=== PATIENT | male | born 1985 ===

== ENCOUNTER 2021-08-22 16:37 | Inpatient (IN) | payer OTHER ==
[~2021-08-22] VITALS: Ht 167.6 cm; Wt 143.0 kg
[2021-08-22] MEDS ORDERED: TIVICAY50 MG PO (16:58)
[2021-08-22] MEDS ORDERED: DESCOVY 200-251 EAC1 PO (16:59)
[2021-08-22] MEDS ORDERED: HYDR1TAB94 PO (17:00)
[2021-08-22] MEDS ORDERED: CARV6.25 PO (17:02)
[2021-08-22] MEDS ORDERED: VELPHORO PO (17:06)
[2021-08-22] MEDS ORDERED: AMLO5 PO (17:06)
--- NOTE | 2021-08-22 18:00 | NUR ---
pt trnsferred from [facility] this selam. did basic admit. reconcilled meds. vss. denies skin issues. permacath rucw. lightly inflamed. denies pain at this time. denies fistula. h/r reg, no murmer noted. no tele. no orders from dr at this time. lungs clear, resp easy, unlabored on r/a. bt x4 last bm yest per pt. states voids approx 2liters per day. admits to being some weak today. will be one asst to bathroom. bed in low position, all lite in reach, calls approp
[2021-08-22 18:56] LABS: BASOPHILS ABSOLUTE AUTO 0.04 K/mm3 (0.00-0.23); BASOPHILS PERCENT AUTO 0 % (0-2); EOSINOPHILS ABSOLUTE AUTO 0.02 K/mm3 (0.00-0.68); EOSINOPHILS PERCENT AUTO 0 % (0-6); Hematocrit 40.7 % (37.0-53.0); Hemoglobin 13.1 g/dL (13.5-17.5); IMMATURE GRAN ABSOLUTE AUTO 0.05 K/mm3 (0.00-0.10); IMMATURE GRAN PERCENT AUTO 0 % (0-1); LYMPHOCYTES ABSOLUTE AUTO 0.39 K/mm3 (0.84-5.20); LYMPHOCYTES PERCENT AUTO 2 % (21-46); MONOCYTES ABSOLUTE AUTO 0.75 K/mm3 (0.16-1.47); MONOCYTES PERCENT AUTO 4 % (4-13); Mean Corpuscular HGB 29.3 pg (26.0-34.0); Mean Corpuscular HGB Conc 32.2 g/dL (31.5-36.5); Mean Corpuscular Volume 91 fL (80-100); Mean Platelet Volume 11.1 fL (9.1-12.4); NEUTROPHILS ABSOLUTE AUTO 17.57 K/mm3 (1.96-9.15); NEUTROPHILS PERCENT AUTO 93 % (41-73); Platelet Count 240 K/mm3 (150-400); RDW Standard Deviation 46.5 fL (35.1-46.3); Red Blood Cell Count 4.47 M/mm3 (4.30-5.90); White Blood Cell Count 18.82 K/mm3 (4.00-11.30)
[2021-08-22 19:10] LABS: Albumin/Globulin Ratio 0.6 (0.8-1.8); Bun/Creatinine Ratio 7.1 (12.0-20.0); Calcium, Blood 9.4 mg/dL (8.5-10.1); Creatinine, Blood 6.78 mg/dL (0.60-1.20); Globulin, Blood 5.3 g/dL (2.2-4.0); Potassium, Blood 4.1 mmol/L (3.5-5.5); Total Protein, Blood 8.3 g/dL (6.4-8.2)
[2021-08-23 05:30] LABS: BASOPHILS ABSOLUTE AUTO 0.02 K/mm3 (0.00-0.23); BASOPHILS PERCENT AUTO 0 % (0-2); EOSINOPHILS ABSOLUTE AUTO 0.01 K/mm3 (0.00-0.68); EOSINOPHILS PERCENT AUTO 0 % (0-6); Hematocrit 37.2 % (37.0-53.0); Hemoglobin 12.2 g/dL (13.5-17.5); IMMATURE GRAN ABSOLUTE AUTO 0.09 K/mm3 (0.00-0.10); IMMATURE GRAN PERCENT AUTO 1 % (0-1); LYMPHOCYTES ABSOLUTE AUTO 0.18 K/mm3 (0.84-5.20); LYMPHOCYTES PERCENT AUTO 2 % (21-46); MONOCYTES ABSOLUTE AUTO 0.57 K/mm3 (0.16-1.47); MONOCYTES PERCENT AUTO 5 % (4-13); Mean Corpuscular HGB 29.8 pg (26.0-34.0); Mean Corpuscular HGB Conc 32.8 g/dL (31.5-36.5); Mean Corpuscular Volume 91 fL (80-100); Mean Platelet Volume 11.4 fL (9.1-12.4); NEUTROPHILS ABSOLUTE AUTO 10.93 K/mm3 (1.96-9.15); NEUTROPHILS PERCENT AUTO 93 % (41-73); Platelet Count 186 K/mm3 (150-400); RDW Coefficient Variation 13.9 % (11.7-14.2); RDW Standard Deviation 46.6 fL (35.1-46.3); Red Blood Cell Count 4.09 M/mm3 (4.30-5.90)
[2021-08-23 05:46] LABS: Source, Urine Clean Catch
[2021-08-23 05:48] LABS: Bilirubin, Urine Neg (Neg); Blood, Urine 1+ (Neg); Glucose Qualitative, Urine Neg (Neg); Ketones, Urine Neg (Neg); Leukocyte Esterase, Urine Neg (Neg); Nitrite, Urine Neg (Neg); Protein, Urine 3+ (Neg); Urobilinogen, Urine 2+ (Normal)
[2021-08-23 06:05] LABS: Albumin, Blood 2.5 g/dL (3.4-5.0); Anion Gap 8 mmol/L (6-16); Blood Urea Nitrogen 54 mg/dL (8-24); CO2, Blood 27 mmol/L (21-32); Calcium, Blood 8.7 mg/dL (8.5-10.1); Chloride, Blood 100 mmol/L (98-108); Glomerular Filtration Rate 8 (60-); Glucose, Blood 120 mg/dL (70-99); Magnesium, Blood 1.9 mg/dL (1.6-2.4); Phosphorus, Blood 5.5 mg/dL (2.5-4.9); Sodium, Blood 135 mmol/L (136-145)
[2021-08-23 06:15] LABS: Appearance, Urine Clear (Clear); Color, Urine Yellow (P-Yellow)
[2021-08-23 06:16] LABS: Bacteria Rare /hpf; Red Blood Cells, Urine 0-2 /hpf (0-2); Squamous Epithelial Cells Not Seen /hpf (Few); White Blood Cells, Urine Rare /hpf (0-5)
--- NOTE | 2021-08-23 06:53 | NUR ---
SHIFT SUMMARY PT IS A 36 Y/O MALE, ADMITTED FOR SEPSIS OF UNKNOWN ETIOLOGY. HE IS A&O X 4, 1PA TO THE BATHROOM. PT IS ON DIALYSIS, WITH PERMACATH IN R CHEST WALL. CULTURES PULLED FROM PERMACATH BY DIALYSIS NURSE. PT WAS MEDICATED FOR DODD AND FEVER WITH 500 MG TYLENOL AND A OT DOSE OF IBUPROFEN WHEN TEMPERATURE INCREASED FROM 100.4 TO 101.9 AFTER RECEIVING TYLENOL. PT WAS MEDICATED ONE FOR NAUSEA DURING THE NIGHT WITH PRN ZOFRAN. NO C/O ACUTE SOB. VITAL SIGNS OTHERWISE STABLE. NO OTHER ACUTE CHANGES IN PT CONDITION NOTED DURING THE NIGHT. WILL CONTINUE TO MONITOR AND TREAT PER EMAR UNTIL HAND OFF TO DAY SHIFT RN.
[2021-08-23] MEDS ORDERED: PANT20 PO (09:00)
[2021-08-23 13:09] LABS: Vancomycin, Random 48.8 ug/mL
--- NOTE | 2021-08-23 15:52 | NUR ---
WHEN THIS NURSE WENT IN TO ADMINISTER ANOTHER DOSE OF IMITREX PER EMAR FOR PT'S HEADACHE, PT COMPLAINED OF CHEST PAIN RATED 2/10. DR DÍAZ NOTIFIED AT 1548, NEW ORDERS INITIATED. MARIIA ADAM NOTIFIED OF ORDER FOR STAT EKG. HA MADERA ALSO NOTIFED ABOUT THE MEDICATIONS AND THAT OUR PHARMACY DOES NOT CARRY A COUPLE OF HIS HOME MEDICATIONS: TIVICAY AND DESCOVY. NATALIO IN PHARMACY ALSO CONTACTING OTHER FACILITIES TO AQUIRE THIS MEDICATION. PT'S SON'S POA IS WILLING TO DRIVE THIS MEDICATION HERE FROM [facility]. HA SENT GAS CARD TO BE GIVEN TO HER UPON ARRIVAL.
[2021-08-23 16:54] LABS: Adenovirus F 40/41 Not Detected (NOT DETECT); Astrovirus Not Detected (NOT DETECT); Campylobacter Sp Not Detected (NOT DETECT); Cryptosporidium Not Detected (NOT DETECT); Cyclospora Cayetanensis Not Detected (NOT DETECT); E. Coli O157 Not Detected (NOT DETECT); Entamoeba Histolytica Not Detected (NOT DETECT); Enteroaggregative E. coli-EAEC Not Detected (NOT DETECT); Enteropathogenic E. coli-EPEC Not Detected (NOT DETECT); Enterotoxigenic E. coli-ETEC Not Detected (NOT DETECT); Giardia Lamblia Not Detected (NOT DETECT); Norovirus GI/GII Not Detected (NOT DETECT); Plesiomonas Shigelloides Not Detected (NOT DETECT); Rotavirus A Not Detected (NOT DETECT); Salmonella Sp Not Detected (NOT DETECT); Sapovirus Not Detected (NOT DETECT); Shiga Toxin-prod E. coli-STEC Not Detected (NOT DETECT); Shigella/Enteroin E. coli-EIEC Not Detected (NOT DETECT); Vibrio Cholerae Not Detected (NOT DETECT); Vibrio Sp Not Detected (NOT DETECT); Yersinia Enterocolitica Not Detected (NOT DETECT)
--- NOTE | 2021-08-23 18:02 | NUR ---
SHIFT SUMMARY PT AXO X4, COOPERATIVE WITH CARE. COMPLAINS OF HEADACHE, DR DÍAZ AWARE AND MEDICATED PER EMAR. THOUGH SECOND ORDER FOR IMITREX HELD FOR CHEST PAIN, DR KEY. TEMPERATURE 99.3-100.6, MEDICATED PER EMAR. PT COMPLAINS OF FEELING HOT, GIVEN A FAN FOR COMFORT. SEE PRIOR NOTE ABOUT CHEST PAIN. EKG AT 1607 SHOWED SINUS TACHYCARDIA, SEE PRINTED RESULTS ON CHART. PT'S SON'S POA IN ROUTE TO BRING HOME MEDICATIONS FROM [employer]. GAS REIMBURSEMENT CARD IN CHART BOX, CHARGE NURSE AWARE. PT COMPLAINED OF DIARRHEA, SEE LABS FOR RESULTS FROM GI PANEL. PT REQUESTING IMMODIUM. NURSE EDUCATED PATIENT ON IMPORTANCE OF WAITING FOR RESULTS FROM GI PANEL PRIOR TO HAVING A MEDICATION SUCH IMMODIUM. PT GROWING INCREASINGLY WEAK THROUGHOUT THE SHIFT, UP TO BSC WITH 1 ASSIST. PT UNABLE TO VOID ON BEDPAN. IV PATENT AND SALINE LOCKED. BED IN LOW POSITION, CALL LIGHT WITHIN REACH PT DENIES SOB THOUGH TACHYPNEIC WITH PAIN. TACHYCARDIA NOTE AND DR DÍAZ AWARE. PT MEDICATED FOR NAUSEA X2 THIS SHIFT.
[2021-08-24 05:17] LABS: Hemoglobin 11.5 g/dL (13.5-17.5); Mean Corpuscular HGB 29.5 pg (26.0-34.0); Mean Corpuscular HGB Conc 32.9 g/dL (31.5-36.5); Mean Corpuscular Volume 90 fL (80-100); Mean Platelet Volume 11.7 fL (9.1-12.4); Platelet Count 180 K/mm3 (150-400); RDW Coefficient Variation 13.6 % (11.7-14.2); RDW Standard Deviation 44.9 fL (35.1-46.3); White Blood Cell Count 6.37 K/mm3 (4.00-11.30)
[2021-08-24 06:01] LABS: Magnesium, Blood 2.2 mg/dL (1.6-2.4)
[2021-08-24 06:04] LABS: Albumin, Blood 2.2 g/dL (3.4-5.0); Anion Gap 11 mmol/L (6-16); Blood Urea Nitrogen 57 mg/dL (8-24); Bun/Creatinine Ratio 6.2 (12.0-20.0); CO2, Blood 24 mmol/L (21-32); Calcium, Blood 9.2 mg/dL (8.5-10.1); Chloride, Blood 99 mmol/L (98-108); Creatinine, Blood 9.13 mg/dL (0.60-1.20); Glomerular Filtration Rate 7 (60-); Glucose, Blood 129 mg/dL (70-99); Phosphorus, Blood 4.3 mg/dL (2.5-4.9); Potassium, Blood 3.6 mmol/L (3.5-5.5); Sodium, Blood 134 mmol/L (136-145)
--- NOTE | 2021-08-24 07:16 | NUR ---
SHIFT SUMMARY PT IS A 36 Y/O MALE, ADMITTED FOR SEPSIS AND RENAL FAILURE. HE IS A&O X 4, 1PA TO THE BATHROOM. CURRENTLY ON DIALYSIS WITH PERMACATH IN R CHEST WALL. HE WAS MEDICATED ONCE FOR A DODD WITH PRN NORCO AND FOR HEARTBURN WITH PRN TUMS. NO C/O SOB. VITAL SIGNS STABLE. PT DID HAVE CRITICALLY HIGH CREATININE THIS AM AT 9.13. DR SANDOVAL NOTIFIED. NO OTHER ACUTE CHANGES IN PT CONDITION NOTED DURING THE NIGHT. REPORT GIVEN TO ONCOMING RN.
[2021-08-24 13:44] LABS: Vancomycin, Random 18.3 ug/mL
--- NOTE | 2021-08-24 17:14 | NUR ---
SHIFT SUMMARY PT AxOx4. PLEASANT AND COOPERATIVE WITH CARE. PT HAD DIALYSIS TODAY. TEMP WNL THIS SHIFT. PT HAD SHOWER AND REPORTS FEELING BETTER THIS EVENING. VITALS REVIEWED. PT CURRENTLY RESTING IN BED WITH CALL LIGHT IN REACH. DENIES PAIN/NEEDS. CURRENT PLAN IS TO CONTINUE ABX FOR INFECTION IN PERM CATH.
--- NOTE | 2021-08-25 04:40 | NUR ---
SHIFT SUMMARY Received patient AAOX4, Denies pain and disconfort at this time. Patient catheter culture result came back positive. Plan is to remove it at this point. Next dialysis should be on Tuesday. Patient stated feeling much better now. He is pleasant and cooperative with care. Call light within reach. We will continue to monitor patient for any acute changes.
[2021-08-25 05:07] LABS: BASOPHILS ABSOLUTE AUTO 0.01 K/mm3 (0.00-0.23); BASOPHILS PERCENT AUTO 0 % (0-2); EOSINOPHILS PERCENT AUTO 5 % (0-6); Hematocrit 33.4 % (37.0-53.0); IMMATURE GRAN ABSOLUTE AUTO 0.02 K/mm3 (0.00-0.10); IMMATURE GRAN PERCENT AUTO 1 % (0-1); LYMPHOCYTES ABSOLUTE AUTO 0.66 K/mm3 (0.84-5.20); LYMPHOCYTES PERCENT AUTO 15 % (21-46); MONOCYTES ABSOLUTE AUTO 0.45 K/mm3 (0.16-1.47); MONOCYTES PERCENT AUTO 10 % (4-13); Mean Corpuscular HGB 29.7 pg (26.0-34.0); Mean Corpuscular HGB Conc 32.9 g/dL (31.5-36.5); Mean Corpuscular Volume 90 fL (80-100); Mean Platelet Volume 11.3 fL (9.1-12.4); NEUTROPHILS ABSOLUTE AUTO 3.01 K/mm3 (1.96-9.15); NEUTROPHILS PERCENT AUTO 69 % (41-73); Platelet Count 182 K/mm3 (150-400); RDW Coefficient Variation 13.4 % (11.7-14.2); RDW Standard Deviation 44.2 fL (35.1-46.3); White Blood Cell Count 4.35 K/mm3 (4.00-11.30)
[2021-08-25 05:41] LABS: Albumin, Blood 2.1 g/dL (3.4-5.0); Anion Gap 10 mmol/L (6-16); Blood Urea Nitrogen 35 mg/dL (8-24); Bun/Creatinine Ratio 4.6 (12.0-20.0); CO2, Blood 28 mmol/L (21-32); Calcium, Blood 8.6 mg/dL (8.5-10.1); Chloride, Blood 101 mmol/L (98-108); Creatinine, Blood 7.54 mg/dL (0.60-1.20); Glomerular Filtration Rate 8 (60-); Glucose, Blood 129 mg/dL (70-99); Magnesium, Blood 2.1 mg/dL (1.6-2.4); Phosphorus, Blood 3.5 mg/dL (2.5-4.9); Potassium, Blood 3.5 mmol/L (3.5-5.5); Sodium, Blood 139 mmol/L (136-145)
--- NOTE | 2021-08-25 07:17 | NUR ---
ASSUMED CARE: DR SANDOVAL WENT INTO ROOM AND SPOKE WITH PT. AWARE THAT BLOOD CULTURE FROM DIALYSIS CATH WAS POSITIVE AND ORDERS FOR ECHO AND IR CONSULT FOR CATH REMOVAL. CONSULT CALLED TO ANSWERING SERVICE. CALL TO DIALYSIS NURSE TO GIVE HER A HEADS UP OF PLAN AND DIALYSIS NURSE STATES SHE WILL PLAN TO RUN PT LATER TODAY AND TO KEEP HER POSTED ON PLANS. NPO SIGN ON DOOR IN CASE PROCEDURE CAN BE DONE TODAY.
--- NOTE | 2021-08-25 07:52 | NUR ---
ECHO AT BEDSIDE
--- NOTE | 2021-08-25 09:10 | NUR ---
PT TAKEN TO DIALYSIS
--- NOTE | 2021-08-25 10:21 | NUR ---
Received referral from nurse childcare center administrator (Juliet Harris) on 08/25/2021. Patient is to discharge 08/25/2021 with orders for home health and elected [facility]. Patient was admitted to [facility] on 08/22/2021 due to sepsis renal failure. Review of patient's records indicate that patient lives out of [facility]'s service area ([place], [place]). Notified nurse childcare center administrator of the above. Provided nurse childcare center administrator with name and phone number of the two agencies who services that area per [facility]. No further interventions [facility] Referral Liaison
--- NOTE | 2021-08-25 10:26 | NUR ---
LEFT A MESSAGE WITH HEART FILM AND VIDEO GRAPHICS DESIGNER TO CHECK ON IR'S PLAN FOR PT. AWAITING CALL BACK. DR CROW CAME TO SEE PT BUT HE IS STILL IN DIALYSIS. DISCUSSED WITH HER THAT PT STATED HE HAD HAD SHARP HEADACHE WITH NECK STIFFNESS AND PAIN. DR CROW STATES A CERVICAL EXAM HAS BEEN DONE AND THIS IS NOT A NEW SYMPTOM FOR HIM. PLAN IS FOR DIALYSIS CATH TO BE REMOVED SOON ABLE
--- NOTE | 2021-08-25 10:57 | NUR ---
CONFIRMED WITH [facility] CHARGE CARD CLERK THAT PT WILL HAVE PERMA CATH REMOVED THIS AFTERNOON. AWARE THAT PT IS CURRENTLY IN DIALYSIS AND ONLY HAD FEW BITES OF APPLESAUCE WITH MEDS THIS AM AND SIPS OF FLUID. WILL REMAIN NPO
--- NOTE | 2021-08-25 12:33 | NUR ---
PT RETURNED FROM DIALYSIS ANGRY BECAUSE DR CROW SAW HIM IN DIALYSIS AND TOLD HIM CATH COULD NOT BE REMOVED UNTIL NEGATIVE BLOOD CULTURES. CALL TO DR CROW TO CLARIFY. CALL TO [facility] WHERE SABINE CONFIRMED THAT PT IS IN FACT GETTING CATH REMOVED TODAY AND BLOOD CULTURES WILL BE RECHECKED ON TUESDAY AND IF CLEAR WILL HAVE CATH REPLACED THEN. THE IR PA IS AT BEDSIDE NOW. CALL TO PT ADVOCATE TO COME CHECK IN ON PT IN A FEW HOURS
[2021-08-25 12:48] LABS: Vancomycin, Random 12.5 ug/mL
--- NOTE | 2021-08-25 16:24 | NUR ---
pt taken to [facility] for permacath removal by heart center staff via wheel chair
--- NOTE | 2021-08-25 17:59 | NUR ---
SHIFT SUMMARY: PT RETURNED FROM [facility] WITH STERI STRIPS IN PLACE. SCANT AMOUNT OF BLOOD FROM SITE. DESCRIBES HIMSELF FEELING "LOOPY" AFTER ATIVAN AND FENTANYL. EATING DINNER AND TALKING TO FAMILY AND FRIENDS. NO ACUTE NEEDS OR CONCERNS AT THIS TIME.
--- NOTE | 2021-08-26 07:36 | NUR ---
ADVISED DR TRISTIN MCCANN AND GIVEN B.P. MEDS AND WILL RECHECK IN ONE HOUR. DEVELOPED MOIST SOUNDING COUGH STARTING LAST NIGHT. LUNGS DIM TO CLEAR ON RT SIDE WHICH IS WHERE PERMACATH WAS. ORDER MUCINEX 600 BID AND 2 VIEW CHEST
[2021-08-26 09:09] LABS: Vancomycin, Random 31.6 ug/mL
--- NOTE | 2021-08-26 16:32 | NUR ---
ALERT. ORIENTED. HAD CHEST XRAY THIS AM FOR NEW ONSET COUGH WITH DIM BUT CLEAR LUNG SOUNDS ON RT. HAS NOT C/O ANY DISCOMFORT OR PAIN. HAS BEEN TRYING TO SLEEP BUT HAS BEEN ON CELL PHONE OFTEN. POSSIBLE PERMACATH PLACEMENT TOMORROW IF BLD CULTURES ARE NEGATIVE. NO BLEEDING AT OLD PERMACATH SITE. HAS BEEN INDEPENDENT IN ROOM.TM
[2021-08-27 08:54] LABS: Bun/Creatinine Ratio 4.8 (12.0-20.0); Calcium, Blood 9.3 mg/dL (8.5-10.1); Creatinine, Blood 8.62 mg/dL (0.60-1.20); Potassium, Blood 3.8 mmol/L (3.5-5.5)
--- NOTE | 2021-08-27 15:56 | NUR ---
SHIFT SUMMARY: PATIENT ALERT AND ORIENTED X 4, INDEPENDENT IN HIS ROOM, CONTINENT OF B/B. HE IS A DIALYSIS PATIENTT, HIS PERMACATH IN R CHEST WALL HAS REMOVED AND SENT IT FOR CULTURES, ON 08/25, D/T INFECTION. THE PLAN IS A NEW CATHETER PLACEMENT TOMORROW 08/28 AT AM, PER DR COLLIER. PT DID HAVE CRITICALLY HIGH CREATININE 8.62, DR CROW NOTIFIED. PATIENT DENIES PAIN OR DISCOMFORT. NO ACUTE CHANGES AT THIS TIME. WILL CONTINUE TO MONITOR.
[2021-08-28 05:14] LABS: BASOPHILS ABSOLUTE AUTO 0.07 K/mm3 (0.00-0.23); BASOPHILS PERCENT AUTO 1 % (0-2); EOSINOPHILS ABSOLUTE AUTO 0.37 K/mm3 (0.00-0.68); EOSINOPHILS PERCENT AUTO 5 % (0-6); Hematocrit 33.5 % (37.0-53.0); Hemoglobin 11.1 g/dL (13.5-17.5); IMMATURE GRAN ABSOLUTE AUTO 0.17 K/mm3 (0.00-0.10); IMMATURE GRAN PERCENT AUTO 2 % (0-1); LYMPHOCYTES ABSOLUTE AUTO 1.78 K/mm3 (0.84-5.20); LYMPHOCYTES PERCENT AUTO 24 % (21-46); MONOCYTES ABSOLUTE AUTO 0.61 K/mm3 (0.16-1.47); MONOCYTES PERCENT AUTO 8 % (4-13); Mean Corpuscular HGB 29.8 pg (26.0-34.0); Mean Corpuscular HGB Conc 33.1 g/dL (31.5-36.5); Mean Corpuscular Volume 90 fL (80-100); Mean Platelet Volume 10.7 fL (9.1-12.4); NEUTROPHILS ABSOLUTE AUTO 4.58 K/mm3 (1.96-9.15); NEUTROPHILS PERCENT AUTO 61 % (41-73); Platelet Count 205 K/mm3 (150-400); RDW Coefficient Variation 13.2 % (11.7-14.2); RDW Standard Deviation 43.2 fL (35.1-46.3); Red Blood Cell Count 3.73 M/mm3 (4.30-5.90); White Blood Cell Count 7.58 K/mm3 (4.00-11.30)
--- NOTE | 2021-08-28 05:48 | NUR ---
Patient is alert and oriented x4, complains of weakness and pain on the right chest. NPO after midnight for a new permacath. Snacks provided. Old permacath site on the right chest is C/D/I. Call light within reach.
[2021-08-28 05:54] LABS: Calcium, Blood 8.8 mg/dL (8.5-10.1); Creatinine, Blood 9.29 mg/dL (0.60-1.20); Potassium, Blood 3.8 mmol/L (3.5-5.5)
--- NOTE | 2021-08-28 13:53 | NUR ---
DIALYSIS WITH DELAYED START THIS MORNING DUE TO NEED FOR CVC INSERT AFTER 72 HOURS POST CVC DC AND NO GROWTH ON BLOOD CULTURE.
[2021-08-28] MEDS ORDERED: CARV3.125 PO (14:39)
[2021-08-28] MEDS ORDERED: VISBIOME 112.51 EACH PO (14:43)
[2021-08-28] MEDS ORDERED: ACET325 PO (14:44)
[2021-08-28] MEDS ORDERED: CEFAZOLIN2 GM/50 M3 (14:47)
--- NOTE | 2021-08-28 16:34 | NUR ---
DISCHARGE NOTE- PT WAS GIVEN VERBAL AND WRITTEN DISCHARGE INSTRUCTIONS AND ACKNOWLEDGED UNDERSTANDING OF THEM. IV DC'D PRIOR TO DISCHARGE. PT WAS ESCORTED OUT VIA WC BY THE RN AND RN STUDENT. WHERE HE WAS TAKEN BACK TO HIS HOME IN [place] BY TAXI. PT PERMACATH WAS PLACED TODAY, VSS AT THE TIME OF DISCHARGE SLIGHTLY ELEVATED PRESSURE, MEDICATED WITH SCHEDULED CARVEDILOL PRIOR TO DISCHARGE. PT RECIEVED DIALYSIS Tx AND IV ABX JUST PRIOR TO DISCHARGE. NO S&S OF DISTRESS NOTED. PT WAS ABLE TO AMBULATE TO THE TAX[place] FROM THE WC, HE WAS A LITTLE TIRED WHICH HE STATED WAS EXPECTED AFTER DIALYSIS. PT HOME MEDICATIONS WERE IN HIS POSSESSION AT THE TIME OF DISCHARGE.
== END 2021-08-28 16:22 | disposition home or self-care (01) | DRG 314 ==
LOC: MEDS 16:37
PROVIDERS: Internal Medicine; Internal Medicine Nephrology; Nurse Practitioner Acute Care; Pharmacist; ADMIT Internal Medicine
PROC: 3E03329 Introduction of Other Anti-infective into Peripheral Vein, Percutaneous Approach (ICD-10-PCS; 2021-08-22)
PROC: 0JPT3XZ Removal of Tunneled Vascular Access Device from Trunk Subcutaneous Tissue and Fascia, Percutaneous Approach (ICD-10-PCS; principal; 2021-08-25)
PROC: 02PY33Z Removal of Infusion Device from Great Vessel, Percutaneous Approach (ICD-10-PCS; 2021-08-25)
PROC: 0JH63XZ Insertion of Tunneled Vascular Access Device into Chest Subcutaneous Tissue and Fascia, Percutaneous Approach (ICD-10-PCS; 2021-08-28)
PROC: 02HV33Z Insertion of Infusion Device into Superior Vena Cava, Percutaneous Approach (ICD-10-PCS; 2021-08-28)
PROC: B518YZA Fluoroscopy of Superior Vena Cava using Other Contrast, Guidance (ICD-10-PCS; 2021-08-28)
PROC: B548ZZA Ultrasonography of Superior Vena Cava, Guidance (ICD-10-PCS; 2021-08-28)
PROC: 5A1D70Z Performance of Urinary Filtration, Intermittent, Less than 6 Hours Per Day (ICD-10-PCS; 2021-08-28)
DX: T82.7XXA Infection and inflammatory reaction due to other cardiac and vascular devices, implants and grafts, initial encounter (principal); A41.01 Sepsis due to Methicillin susceptible Staphylococcus aureus; N18.6 End stage renal disease; I12.0 Hypertensive chronic kidney disease with stage 5 chronic kidney disease or end stage renal disease; F11.20 Opioid dependence, uncomplicated; N25.81 Secondary hyperparathyroidism of renal origin; Z21 Asymptomatic human immunodeficiency virus [HIV] infection status; F43.10 Post-traumatic stress disorder, unspecified; G62.9 Polyneuropathy, unspecified; Z98.890 Other specified postprocedural states; Z79.899 Other long term (current) drug therapy; G89.29 Other chronic pain; D64.9 Anemia, unspecified; Z88.2 Allergy status to sulfonamides; Z88.8 Allergy status to other drugs, medicaments and biological substances
CPT/HCPCS: 0097U; 36415; 36589; 71045; 71046; 76536; 76604; 76937; 80048; 80053; 80069; 80202; 81001; 83605; 83735; 84100; 84132; 84145; 84484; 85018; 85025; 85027; 85651; 87040; 87070; 87077; 87147; 87186; 93005; 93010; 93306; 93308; 99152; 99153; A9270; C1750; C1769; C1887; C9113; J0690; J1644; J2060; J2250; J2405; J2543; J2765; J3010; J3370; J7040; J7050; Q9967